=== PATIENT | female | born 1955 | race Caucasian/White ===

== ENCOUNTER 2024-01-17 18:36 | Emergency (ER) | payer MEDICARE, MEDICAID ==
[~2024-01-17] VITALS: Ht 167.6 cm; Wt 71.0 kg
[2024-01-17 18:45] VITALS: BP 139/104; PULSE 102; TEMP 98.4; O2SAT 99
[2024-01-17 20:10] VITALS: RESP 16
[2024-01-17] MEDS: traMADol 50MG tablet PO ONE (20:10)
[2024-01-17] MEDS ORDERED: TRAM50TA2 PO (20:56)
== END 2024-01-17 21:24 | disposition home or self-care (01) ==
LOC: ER 18:37
DX: S52.502A Unspecified fracture of the lower end of left radius, initial encounter for closed fracture (principal); S42.292A Other displaced fracture of upper end of left humerus, initial encounter for closed fracture; W19.XXXA Unspecified fall, initial encounter; Y93.89 Activity, other specified; Y92.89 Other specified places as the place of occurrence of the external cause; Y99.8 Other external cause status
CPT/HCPCS: 29105; 73060; 73110; 99284; A4565; A6446; A6449